=== PATIENT | female | born 1970 | race Caucasian/White ===

== ENCOUNTER 2023-09-12 11:11 | Outpatient (OUT) | payer BC, SELFPAY ==
[2023-09-12 11:42] LABS: Basophils Absolute Auto 0.1 10^3/uL (0.0-0.1); Basophils Percent Auto 0.9 % (0.2-2.0); Eosinophils Absolute Auto 0.1 10^3/uL (0.0-0.7); Eosinophils Percent Auto 1.5 % (0.9-7.0); Hematocrit 44.6 % (36.0-48.0); Hemoglobin 14.6 g/dL (12.0-16.0); Immature Granulocytes Abs Auto 0.02 10^3/uL (0.00-0.03); Immature Granulocytes Pct Auto 0.3 % (0.0-0.5); Lymphocytes Absolute Auto 2.4 10^3/uL (1.2-3.8); Lymphocytes Percent Auto 34.9 % (20.5-60.0); Mean Corpuscular HGB Conc 32.7 g/dL (29.9-35.2); Mean Corpuscular Hemoglobin 30.7 pg (26.7-34.0); Mean Corpuscular Volume 93.7 fL (81.0-99.0); Monocytes Absolute Auto 0.4 10^3/uL (0.3-0.8); Monocytes Percent Auto 6.5 % (1.7-12.0); Neutrophils Absolute Auto 3.8 10^3/uL (1.4-6.5); Neutrophils Percent Auto 55.9 % (43.0-75.0); Platelet Count 308 10^3/uL (150-450); Red Blood Count 4.76 10^6/uL (4.20-5.40); Red Cell Distribution Width 13.3 % (11.0-15.0); White Blood Count 6.8 10^3/uL (4.0-11.0)
[2023-09-12 11:47] LABS: Estimated Average Glucose 100 mg/dL; Glycohemoglobin A1C 5.1 % (4.5-6.2)
[2023-09-12 12:08] LABS: Alanine Aminotransferase 21 U/L (14-59); Albumin Globulin Ratio 1.3; Alkaline Phosphatase 41 U/L (46-116); Anion Gap 15.1; Aspartate Amino Transferase 13 U/L (15-37); BUN Creatinine Ratio 20.4; Bilirubin Direct 0.1 mg/dL (0.0-0.2); Bilirubin Total 0.4 mg/dL (0.2-1.0); Calcium 8.7 mg/dL (8.5-10.1); Carbon Dioxide 28.2 mmol/L (21.0-32.0); Chloride 103 mmol/L (98-107); Chol HDL Ratio 2.6; Cholesterol 207 mg/dL (<=200); Estimated GFR (African America >60 (>=60); Estimated GFR (Non-African Ame 60 (>=60); Glucose 98 mg/dL (74-106); HDL Cholesterol 81 mg/dL (40-60); Potassium 4.3 mmol/L (3.5-5.1); Sodium 142 mmol/L (136-145); Thyroid Stimulating Hormone 3.516 uIU/mL (0.358-3.740); Triglycerides 62 mg/dL (<=150); VLDL CHOLESTEROL 12.4 mg/dL
== END 2023-09-12 11:12 | disposition home or self-care (01) ==
LOC: LAB 11:16
PROVIDERS: Family Provider Family Medicine; PCP Family Medicine; Visit Provider Family Medicine
DX: Z00.00 Encounter for general adult medical examination without abnormal findings (principal)
CPT/HCPCS: 36415; 80048; 80061; 80076; 83036; 84443; 85025

== ENCOUNTER 2024-01-20 13:16 | Outpatient (OUT) | payer BC, SELFPAY | END 2024-01-20 13:17 | disposition home or self-care (01) | LOC: PST 13:16 | PROVIDERS: Family Provider Family Medicine; PCP Family Medicine; Visit Provider Surgery | DX: Z01.818 Encounter for other preprocedural examination (principal) ==

== ENCOUNTER 2024-01-27 06:42 | Day surgery (SDC) | payer BC, SELFPAY ==
--- OUTSIDE RECORDS SUMMARY | 2024-01-27 06:44 | XMS_ITS | CCD ---
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 Name Role Phone BUFFY GILES Attending Unavailable ELI, SANTINO Attending Unavailable NADEREReji, BUFFY Referring Unavailable BLACKSTON, JEANIE Attending Unavailable HECK, MAXIMO Referring Unavailable BLACKSTON, JEANIE Attending Unavailable HECK, MAXIMO Referring Unavailable BLACKSTON, JEANIE Attending Unavailable HECK, MAXIMO Referring Unavailable NADERER, BUFFY Attending Unavailable Encounters Encounter Date Encounter Type Care Provider Facility Start: 11-12-2023 End: 11-12-2023 ambulatory SANTINO BENITEZ Not Available Start: 09-02-2023 End: 09-02-2023 ambulatory BUFFY GILES Not Available Start: 06-12-2023 End: 06-12-2023 ambulatory BUFFY JOSEPHERER Not Available Start: 06-10-2023 End: 06-10-2023 ambulatory JEANIE JEFFERYZO Not Available Start: 06-06-2023 End: 06-06-2023 ambulatory JEANIE JEFFERYZO Not Available Start: 06-03-2023 End: 06-03-2023 ambulatory JEANIE BLACKSTON Not Available Payers Date Payer Category Payer Unknown [id number] 1970 Unknown [id number] 1972 Unknown [id number] 1972 Unknown [id number] 1972 Unknown [id number] 1972 Unknown [id number] 1972 Unknown [id number] Summary Purpose Family History No Family History Records Found Advance Directives No Advanced Directives Records Found Additional Source Comments INFORMATION SOURCE (unrecogn ized section and content) DATE CREATED AUTHOR 11/14/2023 [facility] FOR RECORDS PERTAINING TO PATIENTS WHO ARE OR HAVE BEEN ENROLLED IN A CHEMICAL DEPENDENCY/SUBSTANCEABUSE PROGRAM, SOME INFORMATION MAY BE OMITTED. This clinical summary was aggregated from multiple sources. Caution should be exercised in using it in the provision of clinical care. This summary normalizes information from multiple sources, and as a consequence, information in this document may materially change the coding, format and clinical context of patient data. In addition, data may be omitted in some cases. CLINICAL DECISIONS SHOULD BE BASED ON THE PRIMARY CLINICAL RECORDS. [facility]. provides no warranty or guarantee of the accuracy or completeness of information in this document.
[2024-01-27 07:23] VITALS: BP 144/96; PULSE 69; TEMP 36.1; O2SAT 95; BMI 35.3
[2024-01-27] MEDS: LACTATED RINGER'S SOLUTION 1,000 ML 50 ML IV (07:37)
[2024-01-27 08:36] VITALS: BP 106/56; PULSE 69; O2SAT 97
--- NOTE | 2024-01-27 08:38 | W.PM.PROCNOT ---
Date of procedure: 01/27/24 Pre-op diagnosis: screening colonoscopy Post-op diagnosis: other (sigmoid and rectal polyp ) Procedure: Previous colonoscopy: procedure: screening colonoscopy with polypectomy at sigmoid 20cm area approx 1cm in size, and subcentimeter rectal polyp removal at 5cm The patient was given IV conscious sedation.? The patient's SPO2 remained above 90% throughout the procedure. The colonoscope was inserted per rectum and advanced under direct vision to the cecum without difficulty.? The prep was good.? Findings: Terminal ileum os: normal Cecum/Ascending colon: normal Transverse colon: normal Descending/Sigmoid colon: polypectomy at sigmoid 20cm area approx 1cm in size Rectum/Anus: examined in normal and retroflexed positions- subcentimeter rectal polypectomy at 5cm Withdrawal Time was (minutes): 8* The colon was decompressed and the scope was removed.? The patient tolerated the procedure well. Recommendations/Plan: 1.? Lifestyle and dietary modifications as discussed 2.? F/U Biopsies 3.? F/U in 7-10 years depending on biopsy results 4.? Discussed with the family Anesthesia: MAC Surgeon: Lázaro Uriostegui Estimated blood loss (mL): 3 Pathology: other (sigmoid and rectal polyp) Condition: stable Disposition: PACU
[2024-01-27 08:55] VITALS: BP 132/89; PULSE 84; O2SAT 96
== END 2024-01-27 09:06 | disposition home or self-care (01) ==
PROVIDERS: Family Provider Family Medicine; PCP Family Medicine; Visit Provider Surgery
PROC: (CPT 811; principal; 2024-01-27 08:00)
DX: Z12.11 Encounter for screening for malignant neoplasm of colon (principal); R19.5 Other fecal abnormalities; J44.9 Chronic obstructive pulmonary disease, unspecified; F17.210 Nicotine dependence, cigarettes, uncomplicated; D12.8 Benign neoplasm of rectum; K63.5 Polyp of colon
CPT/HCPCS: 45385; 88305; J2704